=== PATIENT | female | born 1970 | race Caucasian/White ===

== ENCOUNTER → 2018-01-21 08:53 | Outpatient (CLI) | payer OTHER, SELFPAY ==
[2018-01-21 10:14] LABS: hCG Titer Quant., Serum < 1 mIU/mL (<9 non-preg)
[2018-01-21 10:24] LABS: Anion Gap 7 (5-15); BUN 16 mg/dL (7-18); BUN/Creat Ratio 20.7 RATIO (10-20); Calcium,Total 8.7 mg/dL (8.5-10.1); Chloride 108 mmol/L (98-107); Creatinine, Serum 0.77 mg/dL (0.55-1.02); EST Glomerular Filtration Rate 85 mL/min (>60); Est Glom Filt Rate - Afr Amer 103 mL/min (>60); Glucose 83 mg/dL (74-106); Potassium 4.4 mmol/L (3.5-5.1); Sodium Level 143 mmol/L (136-145)
--- NOTE | 2018-01-21 15:01 | PCM.TILTTABL ---
- Summary Pre Test Resting HR: 73 Pre Test Resting BP: 98/63 Minimum Test HR: 73 Maximum Test HR: 86 Minimum Test BP: 84/60 Maximum Test BP: 103/58 Physician Tilt Table Report - Patient's Physicians Primary Care Physician: Akhil Coreas Indications/Diagnosis: Syncope Procedure Comments: Patient was brought to the noninvasive lab and EKG was performed which demonstrated normal sinus rhythm at a rate of 68 bpm initial blood pressure was 98/63 mmHg. The patient was then put in the 70? upright tilt position and monitored for total duration of 20 minutes.. Patient denies any complaints other than hand numbness. She was monitored throughout and maintained sinus rhythm. She was then recovered afterwards and still maintained sinus rhythm. No evidence of syncope was noted. The maximum and minimum parameters as noted above. Summary: Negative head upright tilt table test.
[2018-01-21 15:07] VITALS: BP 103/58; BP 84/60; BP 98/63
== END ==
PROVIDERS: Family Provider Family Medicine; PCP Family Medicine; Visit Provider Family Medicine
DX: R42 Dizziness and giddiness (principal)
CPT/HCPCS: 36415; 80048; 84702; 93660; J7030; A4216